=== PATIENT | male | born 1975 | race Caucasian/White ===

== ENCOUNTER 2021-09-24 04:59 | Emergency (ER) | payer BC ==
[2021-09-24 05:17] VITALS: BP 126/87; PULSE 90; TEMP 97.8; BMI 26.7
[2021-09-24] MEDS ORDERED: SODIUM CHLORIDE 1,000 ML ONE (05:20)
[2021-09-24] MEDS ORDERED: ONDANSETRON 4 MG/2 ML VIAL IVPB ONE (05:20)
[2021-09-24] MEDS ORDERED: SODIUM CHLORIDE 1,000 ML IV ONE (05:20)
[2021-09-24] MEDS ORDERED: ONDANSETRON 4 MG/2 ML VIAL ONE ×2 (05:22→05:55)
[2021-09-24] MEDS ORDERED: ACETAMINOPHEN 1000 MG/100 ML BAG IVPB ONE (05:23)
[2021-09-24] MEDS ORDERED: ACETAMINOPHEN INJECTION 100 ML IVPB ONE (05:28)
[2021-09-24 06:07] LABS: URINE APPEARANCE CLOUDY; URINE BILIRUBIN NEGATIVE (NEGATIVE); URINE COLOR YELLOW; URINE GLUCOSE (UA) NEGATIVE (NEGATIVE); URINE KETONE TRACE (NEGATIVE); URINE LEUK ESTERASE NEGATIVE (NEGATIVE); URINE NITRITE NEGATIVE (NEGATIVE); URINE PROTEIN NEGATIVE (NEGATIVE); URINE UROBILINOGEN 0.2 mg/dL (0.2-1.0)
[2021-09-24 06:28] LABS: ALBUMIN 4.1 g/dl (3.4-5.0); BLOOD UREA NITROGEN 14.8 mg/dL (7-18)
[2021-09-24 06:31] LABS: CREATININE 1.1 mg/dL (0.55-1.3)
[2021-09-24 06:33] LABS: BILIRUBIN,TOTAL 0.6 mg/dL (0.2-1); TOT PROT 7.6 g/dl (6.4-8.2)
[2021-09-24 06:57] LABS: BASO % 0.2 % (0-2.0); EOS % 1.4 % (0-4.5); HEMATOCRIT 48.4 % (35.4-49); HEMOGLOBIN 16.8 GM/dL (11.7-16.9); MCH 28.5 pg (25.7-33.7); MCHC 34.8 g/dl (32.0-35.9); MEAN PLT VOLUME 7.5 fl (7.5-11.1); MONO % 10.7 % (3.8-10.2); NEUT % 69.7 % (42.8-82.8); PLATELET COUNT 453 10^3/uL (134-434); RDW 13.7 % (11.9-15.9); WHITE BLOOD COUNT 9.7 K/mm3 (4.0-10.0)
[2021-09-24] MEDS ORDERED: ONDANSETRON 4 MG/2 ML VIAL IVPUSH ONE (07:16)
[2021-09-24] MEDS ORDERED: FAMOTIDINE 20 MG/50 ML IVPB 20 MG/50 ML MG IVPB ONE (07:32)
== END 2021-09-24 08:35 | disposition home or self-care (01) ==
LOC: FER 04:59
PROC: 3E0333Z Introduction of Anti-inflammatory into Peripheral Vein, Percutaneous Approach (ICD-10-PCS; principal; 2021-09-24)
PROC: 3E033GC Introduction of Other Therapeutic Substance into Peripheral Vein, Percutaneous Approach (ICD-10-PCS; 2021-09-24)
PROC: 3E033GC Introduction of Other Therapeutic Substance into Peripheral Vein, Percutaneous Approach (ICD-10-PCS; 2021-09-24)
PROC: 3E0337Z Introduction of Electrolytic and Water Balance Substance into Peripheral Vein, Percutaneous Approach (ICD-10-PCS; 2021-09-24)
DX: R11.2 Nausea with vomiting, unspecified (principal); R19.7 Diarrhea, unspecified
CPT/HCPCS: 36415; 80053; 81003; 85025; 99284-25